=== PATIENT | female | born 1960 | race Two or more races ===

== ENCOUNTER 2022-08-14 06:40 | Day surgery (SDC) | payer OTHER ==
[~2022-08-14] VITALS: Ht 160 cm; Wt 68.9 kg
== END 2022-08-14 12:55 | disposition home or self-care (01) ==
LOC: CIR.AMB 06:40
PROVIDERS: ATTEND Surgery
DX: C50.411 Malignant neoplasm of upper-outer quadrant of right female breast (principal); Z20.822 Contact with and (suspected) exposure to COVID-19; I10 Essential (primary) hypertension; Z88.0 Allergy status to penicillin

== ENCOUNTER → 2022-10-07 07:49 | Outpatient (CLI) | payer OTHER | END | disposition home or self-care (01) | LOC: NUCLEAR 07:00 | DX: C50.411 Malignant neoplasm of upper-outer quadrant of right female breast (principal) ==